=== PATIENT | female | born 1990 | race Caucasian/White ===

== ENCOUNTER 2023-11-27 04:47 | Emergency (ER) | payer OTHER, SELFPAY ==
[2023-11-27 04:49] VITALS: BP 143/81; BMI 29.3
[2023-11-27 05:00] VITALS: BP 133/82
[2023-11-27 05:29] LABS: Hematocrit 36.2 % (37.0-47.0); Hemoglobin 12.8 g/dL (12.0-16.0); Mean Corp Hgb Conc. 35.4 g/dL (33.0-37.0); Mean Corpuscular Hgb 30.9 pg (27.0-31.0); Mean Corpuscular Volume 87.4 fL (81.0-99.0); Mean Platelet Volume 9.4 fL (7.4-10.4); Platelet Count 331 10^3/uL (130-400); Red Blood Cell Count 4.14 10^6/uL (4.20-5.40); Red Cell Dist. Width 11.9 % (11.5-14.5); White Blood Cell Count 9.4 10^3/uL (4.8-10.8)
[2023-11-27 05:42] LABS: ALT (SGPT) 27 U/L (0-35); AST (SGOT) 44 U/L (14-36); Albumin 4.2 g/dl (3.5-5.0); Alkaline Phosphatase 120 U/L (38-126); Blood Urea Nitrogen 14 mg/dl (7-17); Calcium 9.4 mg/dl (8.4-10.2); Carbon Dioxide 27 mmol/L (22-30); Chloride 102 mmol/L (98-107); Estimated Creatinine Clearance 124 ml/min; Glucose 124 mg/dl (70-99); Potassium 4.4 mmol/L (3.5-5.1); Sodium 137 mmol/L (135-145); Total Bilirubin 0.6 mg/dl (0.2-1.3); Total Protein 6.9 g/dl (6.3-8.2); eGFR > 60.00
[2023-11-27 05:47] LABS: Glucose - Point of Care 121 mg/dl (70-99)
[2023-11-27 06:00] VITALS: BP 104/69
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
--- NOTE | 2023-11-27 06:29 | EDRN ---
Patient was seen and evaluated by Dr. Blanc. New order of UA was placed by Dr. Blanc. Patient was seen by PCT, leaving the ED. Patient took out her own IV as it was found laying on the bed. Patient left with her significant other, Reason for leaving
unknown.
== END 2023-11-27 06:36 | disposition left against medical advice (07) ==
LOC: EMR 04:47
PROVIDERS: Emergency Medicine; EMERGENCY PHYSICIAN Emergency Medicine; FAMILY PHYSICIAN Physician Assistant Medical
DX: R41.82 Altered mental status, unspecified (principal); Z53.29 Procedure and treatment not carried out because of patient's decision for other reasons; E11.9 Type 2 diabetes mellitus without complications; Z87.891 Personal history of nicotine dependence
CPT/HCPCS: 99283; 80053; 82962; 85027

== ENCOUNTER 2024-01-25 12:01 | Emergency (ER) | payer BC, SELFPAY ==
[2024-01-25 12:03] VITALS: BP 137/90
[2024-01-25] MEDS: MOTRIN 400 MG PO (13:43)
[2024-01-25] MEDS: LET TOPICAL ANESTHETIC GEL 3 ML TOPICAL (13:43)
--- NOTE | 2024-01-25 13:50 | ED.GENMED ---
History of Present Illness
<Yaquelin Mendoza PA-C - Last Filed: 01/25/24 19:34>
General
Chief Complaint: Skin Problem
Source: patient
Exam Limitations: none
Time Seen by Provider: 01/25/24 12:35
Nursing documentation reviewed up to this point in time: agreed with
History of Present Illness
History of Present Illness:
Patient is a 33-year-old female with history of type 1 diabetes, substance abuse presenting to the emergency department from urgent care due to concerns of foreign body in right foot. Patient states that she was cleaning her house 3 days ago when
she stubbed her left foot and then proceeded to step on a piece of broken glass. She did feel as if the glass has been stuck in the bottom of her right foot. Over the past 2 days she has had significant worsening in pain in her right foot to the
point where she is having difficulty weightbearing. Patient denies any associated fever, chills, nausea, vomiting. She did soak her right foot in warm water yesterday and saw that it 'came to ahead '. She did go to an urgent care facility today
where she was diagnosed with a fracture of her left foot. The x-ray of the right foot did reveal a possible small foreign body in the soft tissue of the plantar surface of the right foot. Urgent care did attempt to remove foreign body but was
unable to and sent to emergency department for evaluation.
Patient is a type I diabetic with history of substance abuse. She is planning to start treatment at a rehab facility in [place] as soon as her foot is healed.
Patient's last tetanus shot was within the past year.
Past History
<Yaquelin Mendoza PA-C - Last Filed: 01/25/24 19:34>
Past History
ED Past Medical History: CAD, IDDM, Psychiatric and Other (ADHD, insomnia)
ED Past Surgical History: Cholecystectomy and
Social History
Tobacco: Former smoker
Alcohol: Occasional
Drug: Marijuana
Personal: Single
Living: alone
Review of Systems
<Yaquelin Mendoza PA-C - Last Filed: 01/25/24 19:34>
Review of Systems
Allergies reviewed?: Yes
All Other Systems: ROS reviewed and negative except as documented in HPI and ROS
Phy Exam
<Yaquelin Mendoza PA-C - Last Filed: 01/25/24 19:34>
Physical Exam
Physical Exam:
Vitals: Patient's vital signs are stable. Afebrile
General: Patient is well appearing, no acute distress. Nontoxic appearing
Skin: Small opening of skin on right plantar foot near base of right fourth/fifth toe at site of prior attempted foreign body removal. No active bleeding or drainage. Significant tenderness of right plantar foot near location of likely foreign
body. Very mild surrounding erythema. No significant edema or any red streaking of right foot.
Head: Normocephalic, atraumatic
Eyes: Sclera nonicteric. EOMs intact. No nystagmus.
Throat: Protecting airway
Neck: Normal ROM, no cervical spine tenderness, no meningismus
Cardiac: Regular rate and rhythm, no murmurs.
Pulm: No apparent respiratory distress.
Abdomen: Nondistended.
Extremities: Likely foreign body and mild surrounding erythema of right plantar foot. Great distal pulses. Right lower extremity neurovascular intact.
Neuro: Grossly intact.
Psychiatric: Normal affect.
Course
<Yaquelin Mendoza PA-C - Last Filed: 01/25/24 19:34>
Orders/Labs/Results
Orders:
Orders
01/25/24 13:06
Ibuprofen [Motrin] 400 mg PO NOW STA
01/25/24 13:40
Lidocaine/Epinephrine/Tetracai [Let Topical Anesthetic Gel] 3 ml .ROUTE .[facility]
01/25/24 13:42
Lidocaine/Epinephrine/Tetracai [Let Topical Anesthetic Gel] 3 ml TOPICAL NOW STA
01/25/24 14:30
Foot, Right 3 View [CR Foot - Right Min 3 Views] Urgent
Comment:
Reason For Exam: eval foreign body base of 4th/ 5th toe
01/25/24 15:38
CR Foot - Right 2 Views Urgent
Reason For Exam: s/p foreign body removal
01/25/24 16:04
Electrocardiogram (*1) Urgent
Reason for Study: QTc Monitoring
EKG- Treatment ONCE
01/25/24 16:47
Ciprofloxacin HCl [Cipro] 1,000 mg .ROUTE .[facility]-MED ONE
01/25/24 20:00
Ciprofloxacin HCl [Cipro] 750 mg PO BID
Vital Signs
Initial and Last Documented VS:
Initial Vital Signs
Temp Pulse Resp BP Pulse Ox
98.7 F 98 20 137/90 99
01/25/24 12:03 01/25/24 12:03 01/25/24 12:03 01/25/24 12:03 01/25/24 12:03
Last Documented Vital Signs
Temp Pulse Resp BP Pulse Ox
98.7 F 100 18 131/98 98
01/25/24 12:03 01/25/24 16:59 01/25/24 16:59 01/25/24 16:59 01/25/24 16:59
<Herman Hammond DO - Last Filed: 01/25/24 20:21>
Orders/Labs/Results
Orders:
Orders
01/25/24 13:06
Ibuprofen [Motrin] 400 mg PO NOW STA
01/25/24 13:40
Lidocaine/Epinephrine/Tetracai [Let Topical Anesthetic Gel] 3 ml .ROUTE .[facility]-MED ONE
01/25/24 13:42
Lidocaine/Epinephrine/Tetracai [Let Topical Anesthetic Gel] 3 ml TOPICAL NOW STA
01/25/24 14:30
Foot, Right 3 View [CR Foot - Right Min 3 Views] Urgent
Comment:
Reason For Exam: eval foreign body base of 4th/ 5th toe
01/25/24 15:38
CR Foot - Right 2 Views Urgent
Reason For Exam: s/p foreign body removal
01/25/24 16:04
Electrocardiogram (*1) Urgent
Reason for Study: QTc Monitoring
EKG- Treatment ONCE
01/25/24 16:47
Ciprofloxacin HCl [Cipro] 1,000 mg .ROUTE .[facility]-MED ONE
01/25/24 20:00
Ciprofloxacin HCl [Cipro] 750 mg PO BID
Vital Signs
Initial and Last Documented VS:
Initial Vital Signs
Temp Pulse Resp BP Pulse Ox
98.7 F 98 20 137/90 99
01/25/24 12:03 01/25/24 12:03 01/25/24 12:03 01/25/24 12:03 01/25/24 12:03
Last Documented Vital Signs
Temp Pulse Resp BP Pulse Ox
98.7 F 100 18 131/98 98
01/25/24 12:03 01/25/24 16:59 01/25/24 16:59 01/25/24 16:59 01/25/24 16:59
Procedures
<Yaquelin Mendoza PA-C - Last Filed: 01/25/24 19:34>
Foreign Body Removal-Skin
Wound explored and foreign body removed?: Yes
Anesthesia: local, LET and 1% lidocaine
Foreign body removed using: irrigation, forceps and incision
Foreign body removed: completely
<Yaquelin Mendoza PA-C - Last Filed: 01/25/24 19:34>
MDM/Problems Addressed
Differential Diagnosis Includes:
Not limited to: Foreign body, cellulitis, etc.
MDM/Problems Addressed:
33-year-old female presenting with possible foreign body (glass) in right plantar foot. Sent by urgent care due to inability to retrieve foreign body visualized on x-ray. Patient reports significant pain in right plantar foot. No signs of
systemic infection including fever, chills, nausea, vomiting. Patient up-to-date on tetanus vaccine. Vital stable. Physical exam as above. Patient does have small opening on right plantar foot near base of fourth/fifth toe�site of prior foreign
body attempted removal at urgent care. There is significant tenderness surrounding this site with mild surrounding erythema. No evidence of severe infection including significant edema, red streaking, purulent drainage. Right lower extremity is
neurovascularly intact.
Patient with significant discomfort and concern that foreign body had possibly moved after manipulation by urgent care. Did repeat x-ray right foot which confirms foreign body in essentially same location as x-ray performed at urgent care.
Assisted by Judith Donovanent was numbed with 1% lidocaine. Irrigated with normal saline. Small shard of glass was removed from right plantar foot through incision made urgent care. Did repeat x-ray foot that confirmed foreign body
successful removal of right plantar foot. Given patient's history of type 1 diabetes and IV drug use�concern for worsening infection. Will place patient on course of ciprofloxacin. First dose given in emergency department today. Did obtain EKG
which shows normal QTc interval. Wound care instructions discussed at length. Patient will monitor closely for signs of worsening infection and return promptly if noted. Patient stable for discharge.
Patient was out of both her gabapentin and Seroquel medications. Will send patient a few days of each medication and she ensure she will follow-up with another provider for any further refills. Wound care instructions
Chronic conditions affecting care:
Type 1 diabetes, history of substance abuse
Acute Exacerbation and/or Progression of Chronic Illness:
N/A
<Yaquelin Mendoza PA-C - Last Filed: 01/25/24 19:34>
*Radiology
Radiology exam reviewed: preliminary read by ED provider (Foreign body visualized on right plantar foot near base of fourth/fifth toe) and radiology read reviewed
*Pulse Oximetry
Patient hypoxic: no
*EKG
Interpreted by ED Provider?: Yes
EKG Intrepretation Date: 01/25/24
Interpretation: normal
Comparison EKG: no comparison EKG present
Heart Rate: 95
Rate: normal
Rhythm: sinus
[place]: normal axis
Interval: normal interval
QRS Pattern: normal QRS
Ischemia: no ischemia
*Elevator Constructor Helper Interpretation
Rate: Elevator Constructor Helper- N/A
*Critical Care Note
Total Time (30-74mins, 75-104mins- exclusive of procedures): Not Applicable
Data Reviewed
Review of Other/Old Records Reveals: Radiology Studies (X-ray obtained today in urgent care which shows small foreign body of right plantar foot.)
ED Attending Note
<Yaquelin Mendoza PA-C - Last Filed: 01/25/24 19:34>
-
Portions of this chart may have been created with voice recognition software.� Occasional wrong word or��sound alike� substitutions may have occurred due to the inherent limitations of voice recognition software.
<Herman Hammond DO - Last Filed: 01/25/24 20:21>
ED Attending Note
Patient seen and examined by attending physician: Yes
I performed the substantive portion of visit, reviewed & personally made and approve the management plan that is documented in note by myself or VERONIKA.: Yes
Discharge Plan
Departure
Patient Disposition: Home (Routine Discharge)
Date of Disposition: 01/25/24
Time of Disposition: 16:33
Patient with high blood pressure during this ER visit?: Yes
Condition: Good
Discharge Problem:
Foreign body in foot, right
Instructions: Cellulitis (Skin Infection), Adult (DC)
Prescriptions:
New
gabapentin 600 mg tablet
600 mg PO TID 5 Days Qty: 15 0RF
quetiapine 200 mg tablet
200 mg PO HS Qty: 5 0RF
ciprofloxacin HCl 750 mg tablet
750 mg PO BID Qty: 14 0RF
No Action
gabapentin [Neurontin] 600 MG tablet
600 mg PO TID
trazodone 50 mg Tablet
50 mg PO HSPRN PRN (Reason: sleep)
quetiapine 200 mg Tablet
200 mg PO HS
ibuprofen 200 mg Tablet
200 mg PO DAILYPRN PRN (Reason: mild pain)
insulin aspart U-100 100 unit/mL (3 mL) Insulin Pen
0 - 7 unit SC MEALS
Patient Comments:
04/04/23 1:10 for carbs
1 unit for every 25 points over 160
insulin glargine [Lantus Solostar U-100 Insulin] 100 unit/mL (3 mL) Insulin Pen
30 unit SC DAILY
lisdexamfetamine 60 mg Capsule
60 mg PO DAILY
Medical Marijuana
1 - 2 puff inhalation HS
cefdinir 300 mg capsule
300 mg PO Q12H 12 Days Qty: 24 0RF
Referrals:
Junior Anne PA-C [Family Provider] -
Activity Restrictions/Additional Instructions:
RETURN TO THE EMERGENCY DEPARTMENT WITH ANY FEVERS, CHILLS, SIGNIFICANT WORSENING IN REDNESS, SWELLING, PAIN OF RIGHT FOOT, PURULENT DRAINAGE FROM WOUND, RED STREAKING FROM WOUND, NUMBNESS/TINGLING IN RIGHT FOOT, WORSENING IN CURRENT SYMPTOMS, OR
ANY OTHER CONCERNS
-The prescription has been sent to your pharmacy. You should take antibiotic twice a day for the week.
-Keep wound clean and dry. Take Tylenol and/or Motrin as needed for pain.
Monitor your symptoms closely and return to the emergency department with any acute worsening/new symptoms or any signs of worsening infection
Interventions
Interventions:
*Risk Screen - Suicide Last Done: 01/25/24 12:03
*General Assessment Last Done: 01/25/24 12:03
*Neglect/Abuse Screening Last Done: 01/25/24 12:03
ED- Fall Risk Assessment Last Done: 01/25/24 17:03
*ED COVID-19 Vaccine History Last Done: 01/25/24 17:03
*Nursing Disposition Last Done: 01/25/24 17:03
ED-Skin Assessment Last Done: 01/25/24 13:51
Discharge Date and Time
Discharge Date/Time: 01/25/24 17:03
Print Language: AZERI
[2024-01-25] MEDS: CIPRO 750 MG PO (16:56)
[2024-01-25 16:59] VITALS: BP 131/98
== END 2024-01-25 17:03 | disposition home or self-care (01) ==
LOC: EMR 12:01
PROVIDERS: EMERGENCY PHYSICIAN Emergency Medicine; FAMILY PHYSICIAN Physician Assistant Medical
DX: S90.851A Superficial foreign body, right foot, initial encounter (principal); W45.8XXA Other foreign body or object entering through skin, initial encounter; E10.9 Type 1 diabetes mellitus without complications; Z87.891 Personal history of nicotine dependence
CPT/HCPCS: 99284; 10120; 73620; 73630; 93005

== ENCOUNTER 2025-01-24 18:03 | Emergency (ER) | payer OTHER, SELFPAY ==
[2025-01-24 18:04] VITALS: BP 116/79
--- NOTE | 2025-01-24 19:48 | ED.GENMED ---
History of Present Illness
General
Chief Complaint: Social Service Referral
Source: patient
Exam Limitations: none
Time Seen by Provider: 01/24/25 18:50
Nursing documentation reviewed up to this point in time: agreed with
History of Present Illness
History of Present Illness:
34-year-old female requesting rehab for crack and heroin use last used today, she was told to come in and askfor B cares
Past History
Past History
ED Past Medical History: CAD, IDDM, Psychiatric and Other (ADHD, insomnia)
ED Past Surgical History: Cholecystectomy and
Social History
Tobacco: Former smoker
Alcohol: Occasional
Drug: Cocaine and Narcotics
Personal: Single
Living: alone
Review of Systems
Review of Systems
All Other Systems: Not applicable
ABD/GI: Reports nausea; Denies abdominal pain or vomiting
Musculoskeletal: Reports no symptoms
Skin: Reports no symptoms
Phy Exam
Physical Exam
Physical Exam:
Physical Exam
General: no apparent distress, not acutely ill
Neck: Lips are slightly dry
Heart: s1/s2 regular rate and rhythm, no murmur. equal radial pulses.
Lungs: no acute respiratory distress.
Neuro: alert and oriented. no focal neurological deficits
Skin: no rash
Psychiatric: well kept. interactive and cooperative
Extremities: no edema.
Course
Orders/Labs/Results
Orders:
Orders
01/24/25 19:29
Warm Handoff Consult ONCE
Patient agreeable to Warm Hand off: Yes
01/24/25 19:57
Alcohol Urgent
Comprehensive Metabolic Panel Urgent
HCG, Serum Qualitative Screen Urgent
01/24/25 19:59
0.9% Sodium Chloride 1000 ml [Nss] 1,000 ml IV BOLUS
Test Result ONCE
01/24/25 20:17
Complete Blood Count/With Diff Urgent
Glycohemoglobin (HgbA1c) Urgent
01/24/25 20:31
Insulin Aspart [NOVOLOG vial] 12 units SC NOW STA
01/24/25 20:45
Add On- LAB Urgent
Comments:: add on
Tests Added?: a1c
01/24/25 21:25
Add On- LAB Urgent
Tests Added?: Hemoglobin A1c
01/24/25 21:40
Oxycodone [Roxicodone] 10 mg PO NOW STA
Abnormal Lab Results
01/24/25 01/24/25 01/24/25
19:52 19:57 20:17
WBC 11.3 H 10^3/uL
(4.8-10.8)
RBC 4.06 L 10^6/uL
(4.20-5.40)
Hct 34.9 L %
(37.0-47.0)
Absolute Neuts (auto) 7.9 H 10^3/uL
(1.4-6.5)
Sodium 129 L mmol/L
(135-145)
Potassium 5.3 H mmol/L
(3.5-5.1)
Chloride 94 L mmol/L
(98-107)
Carbon Dioxide 33 H mmol/L
(22-30)
BUN 19 H mg/dl
(7-17)
Glucose 461 H* mg/dl
(70-99)
Alkaline Phosphatase 175 H U/L
(38-126)
Total Protein 6.0 L g/dl
(6.3-8.2)
POC Glucose 495 H* mg/dl
(70-99)
01/24/25 20:17
01/24/25 19:57
Vital Signs
Initial and Last Documented VS:
Initial Vital Signs
Temp Pulse Resp BP Pulse Ox
98 F 85 16 116/79 100
01/24/25 18:04 01/24/25 18:04 01/24/25 18:04 01/24/25 18:04 01/24/25 18:04
Last Documented Vital Signs
Temp Pulse Resp BP Pulse Ox
98 F 85 16 116/79 100
01/24/25 18:04 01/24/25 18:04 01/24/25 18:04 01/24/25 18:04 01/24/25 19:49
MDM/Problems Addressed
Differential Diagnosis Includes:
Heroin abuse cocaine abuse diabetes
MDM/Problems Addressed:
Heroin abuse cocaine abuse diabetes
Chronic conditions affecting care:
Social stressors diabetes drug abuse
Acute Exacerbation and/or Progression of Chronic Illness:
Social stressors diabetes drug abuse
*Pulse Oximetry
SaO2: 100
Oxygen Mode of Delivery: Room air
Patient hypoxic: no
*Critical Care Note
Total Time (30-74mins, 75-104mins- exclusive of procedures): Not Applicable
Update Note
Update Note:
Update, warm handoff has been notified of the patient's desire to go to rehab, Accu-Chek noted will check electrolytes start on saline hydration
Discussed with patient based on a sugar of 495 typically will take about 12 units NovoLog
She did have insulin this morning
RN reports that Bernardino novoa can place the patient to [facility] [place] because she is diabetic but they are looking at other facilities who could place her once her hemoglobin A1c is back??
Is obviously is not an urgent issue, and will be reported today, will see if crisis has any resources for the patient
9:45 PM update received a call from [facility] [phone] patient is been accepted there been on the waiting list that she have a bed this evening they have resources to take care of medical issues and substance abuse
including diabetes
Patient is agreeable to go this evening they will send a medical [employer] to get her,
ED Attending Note
-
Portions of this chart may have been created with voice recognition software.� Occasional wrong word or��sound alike� substitutions may have occurred due to the inherent limitations of voice recognition software.
Discharge Plan
Departure
Patient Disposition: Acute Rehab Facility
Date of Disposition: 01/24/25
Time of Disposition: 21:44
Patient with high blood pressure during this ER visit?: No
Condition: Good
Discharge Problem:
Type 1 diabetes, Opioid withdrawal
Prescriptions:
No Action
gabapentin [Neurontin] 600 MG tablet
600 mg PO TID
trazodone 50 mg Tablet
50 mg PO HSPRN PRN (Reason: sleep)
quetiapine 200 mg Tablet
200 mg PO HS
ibuprofen 200 mg Tablet
200 mg PO DAILYPRN PRN (Reason: mild pain)
insulin aspart U-100 100 unit/mL (3 mL) Insulin Pen
0 - 7 unit SC MEALS
Patient Comments:
04/04/23 1:10 for carbs
1 unit for every 25 points over 160
insulin glargine [Lantus Solostar U-100 Insulin] 100 unit/mL (3 mL) Insulin Pen
30 unit SC DAILY
lisdexamfetamine 60 mg Capsule
60 mg PO DAILY
Medical Marijuana
1 - 2 puff inhalation HS
cefdinir 300 mg capsule
300 mg PO Q12H 12 Days Qty: 24 0RF
gabapentin 600 mg tablet
600 mg PO TID 5 Days Qty: 15 0RF
quetiapine 200 mg tablet
200 mg PO HS Qty: 5 0RF
ciprofloxacin HCl 750 mg tablet
750 mg PO BID Qty: 14 0RF
Referrals:
NONE,* [Family Provider, Internal Medicine]
Interventions
Interventions:
*Risk Screen - Suicide Last Done: 01/24/25 18:06
*General Assessment Last Done: 01/24/25 19:54
*Neglect/Abuse Screening Last Done: 01/24/25 18:06
*ED- Fall Risk Assessment Last Done: 01/24/25 19:54
*ED COVID-19 Vaccine History Last Done: 01/24/25 19:54
ED-Psychological Assessment Last Done: 01/24/25 19:54
Discharge Date and Time
Print Language: BULGARIAN
[2025-01-24 19:54] LABS: Glucose - Point of Care 495 mg/dl (70-99)
[2025-01-24 20:25] LABS: Hematocrit 34.9 % (37.0-47.0); Hemoglobin 12.5 g/dL (12.0-16.0); Mean Corp Hgb Conc. 35.8 g/dL (33.0-37.0); Mean Corpuscular Volume 86.0 fL (81.0-99.0); Nucleated Red Blood Cells % 0 %; Platelet Count 375 10^3/uL (130-400); Red Cell Dist. Width 12.5 % (11.5-14.5)
[2025-01-24 20:29] LABS: HCG, Serum Qualitative Screen Negative
[2025-01-24 20:35] LABS: ALT (SGPT) 20 U/L (0-35); AST (SGOT) 20 U/L (14-36); Albumin 3.6 g/dl (3.5-5.0); Alkaline Phosphatase 175 U/L (38-126); Blood Urea Nitrogen 19 mg/dl (7-17); Calcium 9.2 mg/dl (8.4-10.2); Carbon Dioxide 33 mmol/L (22-30); Chloride 94 mmol/L (98-107); Glucose 461 mg/dl (70-99); Potassium 5.3 mmol/L (3.5-5.1); Sodium 129 mmol/L (135-145); Total Protein 6.0 g/dl (6.3-8.2); eGFR > 60.00
[2025-01-24] MEDS: NOVOLOG vial 12 UNITS SC (20:36)
[2025-01-24] MEDS: NSS 1000 IV (20:38)
[2025-01-24] MEDS: ROXICODONE 10 MG PO (21:51)
[2025-01-24 21:55] VITALS: BP 132/81
[2025-01-24 21:58] LABS: Glucose - Point of Care 388 mg/dl (70-99)
[2025-01-25 09:49] LABS: Glycohemoglobin (HgbA1c) 12.6 % (4.0-5.6)
== END 2025-01-24 22:23 ==
LOC: EMR 18:03
PROVIDERS: EMERGENCY PHYSICIAN Emergency Medicine
DX: F11.23 Opioid dependence with withdrawal (principal); E10.9 Type 1 diabetes mellitus without complications; F14.10 Cocaine abuse, uncomplicated; Z79.4 Long term (current) use of insulin; Z87.891 Personal history of nicotine dependence
CPT/HCPCS: 96372; 96360; 99285; 80053; 82077; 82962; 83036; 84703; 85025